=== PATIENT | female | born 1985 | race Caucasian/White ===

== ENCOUNTER 2022-08-29 00:04 | Emergency (ER) | payer OTHER, MEDICAID ==
[~2022-08-29] VITALS: Ht 157.5 cm; Wt 90.7 kg
[2022-08-29 00:18] VITALS: BP 130/65
--- NOTE | 2022-08-29 00:26 | NUR ---
Patient taken to bed 6.
--- NOTE | 2022-08-29 00:38 | NUR ---
Dr. Escobedo examining patient.
--- NOTE | 2022-08-29 01:00 | NUR ---
RT at bedside for ABG.
[2022-08-29 01:41] VITALS: BP 122/67
--- NOTE | 2022-08-29 01:41 | NUR ---
Patient discharged with v/s stable. Written and verbal after care instructions given and explained. Patient verbalized understanding. Ambulatory with steady gait. All questions addressed prior to discharge. Advised to follow up with PMD.
== END 2022-08-29 01:41 | disposition home or self-care (01) ==
LOC: MED 00:04
DX: Z77.098 Contact with and (suspected) exposure to other hazardous, chiefly nonmedicinal, chemicals (principal); Z88.1 Allergy status to other antibiotic agents; Z88.2 Allergy status to sulfonamides
CPT/HCPCS: 36600; 82803; 99283